=== PATIENT | female | born 1955 | race Caucasian/White ===

== ENCOUNTER → 2016-11-23 | Outpatient (CLI) | payer MEDICARE ==
[~2016-11-23] MED LIST: ALLOPURINOL100 M1 PO; AMITRIPTYLINE50 MG PO; APAP/OXYCODONE1 TA1 PO; ASPIRIN LOW STR81 MG PO; ATIVAN2 MG PO; BENADRYL 50MG C50 MG PO; KEFLEX 500MG.500 MG PO; LISINOPRIL AND1 TA1 PO; LYRICA75 MG PO; MECLIZINE25 MG PO; MELOXICAM15 MG PO; NEURONTIN 100100 MG PO; PERCOCET 325 MG1 TA4 PO; PRILOSEC40 MG PO; PROMETHAZINE25 M1 PO; PROPRANOLOL HCL10 MG PO; SUMATRIPTAN SUC25 MG PO; SYNTHROID 0.0.075 MG PO; TAGAMET800 MG PO; TOPAMAX25 M1 PO
[2016-11-23 16:41] LABS: AMPHETAMINES/METAMPHETAMINES NEGATIVE ng/mL (<1000)
[2016-11-29 10:38] LABS: Opiates Negative (Cutoff=100)
== END ==
LOC: LAB 15:12
PROVIDERS: Anesthesiology
DX: Z79.899 Other long term (current) drug therapy (principal)